=== PATIENT | female | born 1960 | race Hispanic/Latino ===

== ENCOUNTER 2022-07-08 12:51 | Outpatient (CLI) | payer OTHER | END 2022-07-08 12:52 | disposition home or self-care (01) | LOC: CSHMAMMO 12:51 | PROVIDERS: ATTEND Nurse Practitioner Family | DX: Z12.31 Encounter for screening mammogram for malignant neoplasm of breast (principal) | CPT/HCPCS: 77063; 77067 ==

== ENCOUNTER 2022-08-11 05:59 | Day surgery (SDC) | payer OTHER ==
[2022-08-10 09:24] VITALS: BMI 21.9
[2022-08-11] MEDS ORDERED: PROPOFOL 40 ML ONE (07:29)
[2022-08-11] MEDS ORDERED: Ketamine 50 MG/ML (10ML VIAL) ONE (07:33)
[2022-08-11] MEDS ORDERED: Lidocaine 1% PF 5 ML VIAL ONE (08:03)
[2022-08-11] MEDS ORDERED: PHENYLEPHRINE-NS 100 MCG/ML 10 ML SYRINGE ONE (08:04)
[2022-08-11] MEDS ORDERED: PROPOFOL 20 ML ONE (08:09)
== END 2022-08-11 09:03 | disposition home or self-care (01) ==
LOC: CSHSDC 05:59
PROVIDERS: ATTEND Internal Medicine Gastroenterology
PROC: 0DJD8ZZ Inspection of Lower Intestinal Tract, Via Natural or Artificial Opening Endoscopic (ICD-10-PCS; principal; 2022-08-11)
PROC: 0DJ08ZZ Inspection of Upper Intestinal Tract, Via Natural or Artificial Opening Endoscopic (ICD-10-PCS; principal; 2022-08-11)
DX: Z12.11 Encounter for screening for malignant neoplasm of colon (principal); K57.30 Diverticulosis of large intestine without perforation or abscess without bleeding; K44.9 Diaphragmatic hernia without obstruction or gangrene; K64.9 Unspecified hemorrhoids; K31.89 Other diseases of stomach and duodenum; F41.9 Anxiety disorder, unspecified; K22.2 Esophageal obstruction; K21.9 Gastro-esophageal reflux disease without esophagitis; Z88.0 Allergy status to penicillin; Z79.899 Other long term (current) drug therapy
CPT/HCPCS: J2704